=== PATIENT | female | born 1980 | race African-American/Black ===

== ENCOUNTER 2020-10-06 09:06 | Outpatient (CLI) | payer OTHER, SELFPAY ==
--- NOTE | ~2020-10-06 | MM_ITS ---
EXAMINATION: MM screening lucila BI w nate HISTORY: Screening mammogram TECHNIQUE: Craniocaudal and mediolateral oblique 3-D tomosynthesis images were obtained and synthetic 2-D images were generated. CAD analysis was submitted and interpreted. COMPARISON: None, baseline BREAST PARENCHYMAL COMPOSITION: The breasts are almost entirely fatty. FINDINGS: Scattered benign-appearing calcifications are present.Fat-containing masses in the upper ou ter quadrant of the right breast have the appearance of intramammary lymph nodes. There is no evidenc e of suspicious mass, calcification, or architectural distortion to suggest malignancy in either [address]. IMPRESSION: 1. No mammographic evidence of malignancy. 2. Recommend routine screening mammography in one year. BI-RADS Category 2: Benign finding(s). Reviewed, dictated and finalized at location A.
== END 2020-10-06 09:07 | disposition home or self-care (01) ==
LOC: ANHIMG 09:12
PROVIDERS: Visit Provider Obstetrics & Gynecology
DX: Z12.31 Encounter for screening mammogram for malignant neoplasm of breast (principal)
CPT/HCPCS: 77063; 77067

== ENCOUNTER 2020-12-14 16:44 | Emergency (ER) | payer OTHER, MEDICAID, SELFPAY ==
[2020-12-14 16:57] VITALS: BP 142/79; PULSE 82; RESP 18; TEMP 36.7; O2SAT 98
--- NOTE | 2020-12-14 17:13 | ED.UPPEXIN ---
HPI - Extremity Injury (Upper) General Chief Complaint: Extremity Injury, Upper Stated Complaint: left wrist swelling/pain Time Seen by Provider: 12/14/20 17:04 Source: patient and RN notes reviewed Mode of arrival: ambulatory Limitations: no limitations History of Present Illness HPI narrative: 40-year-old female presents with concern for left wrist pain and swelling. Reports 1 month history of wrist pain with flexion and extension, reports she has been using an Jung wrap for the past several days. Reports when she took the Jung wrap off the pain returned. She denies any injury or trauma, open skin, warmth, redness. Denies other intervention besides an Jung wrap. Related Data Home Medications Medication Instructions Recorded Confirmed Vitamin D 12/14/20 Allergies Allergy/AdvReac Type Severity Reaction Status Date / Time No Known Allergies Allergy Unverified 10/14/18 09:33 Review of Systems Review of Systems: CONSTITUTIONAL: Denies malaise, chills, sweats, or fever. SKIN: Denies abrasion, laceration, warmth, redness MUSCULOSKELETAL: Reports left wrist pain and swelling NEUROLOGIC: Denies numbness, weakness All systems reviewed & are unremarkable except as noted in HPI and below PMFSH Comments At time of signature, agree with nursing past medical, surgical, social and family history. There is no relevant family history pertinent to the presenting complaint Exam Narrative: GENERAL: Well-appearing, well-nourished, and in no acute distress. HEAD: Normocephalic, atraumatic. EYES: PERRLA, conjunctivae clear NECK: Supple. CHEST: Speaks in full sentences. No respiratory distress. HEART: Regular rate and rhythm. Normal and equal peripheral pulses. EXTREMITIES: Left wrist, hand, digits have normal strength and sensation, normal range of motion. No edema or ecchymosis. 5/5 strength with wrist and digit flexion and extension. Normal sensation with sensitivity to light touch and pain. Dorsal wrist tenderness. No open wounds, no skin tenting, no devitalized tissue or atrophy, no trophic changes, no obvious deformity, alignment normal, nearby joints and structures intact. Distal pulses palpable and equal bilaterally, skin warm, dry, pink. Capillary refill less than 3 seconds. SKIN: Warm, dry, no rash. NEURO: Alert and oriented x3. PSYCH: Normal mood and affect Course Course Emergency Course: Patient is aware of diagnosis, understands and agrees to treatment plan. Anticipatory guidance given. Patient agrees to follow-up as directed and is aware of reasons to seek care at the emergency department. Portions of this record may have been created with voice recognition software Vital Signs Vital signs: Vital Signs Temperature 98.0 F 12/14/20 16:57 Pulse Rate 82 12/14/20 16:57 Respiratory Rate 18 12/14/20 16:57 Blood Pressure 142/79 H 12/14/20 16:57 Pulse Oximetry 98 12/14/20 16:57 Temperature 98.0 F 12/14/20 16:57 Pulse Rate 82 12/14/20 16:57 Respiratory Rate 18 12/14/20 16:57 Blood Pressure 142/79 H 12/14/20 16:57 Pulse Oximetry 98 12/14/20 16:57 Reviewed. MDM - Extremity Injury (Upper) MDM Narrative Medical decision making narrative: Patients injury and pain is consistent with musculoskeletal etiology. No signs of neurological or vascular compromise on exam. Compartments and tissues are soft without signs of compartment syndrome. Pain is felt appropriate for further evaluation on an outpatient basis. Critical Care Time Critical Care Time Critical Care Time: No Discharge Plan Discharge Clinical Impression: Left wrist tendinitis Patient Disposition: Home, Self-Care Condition: Stable Instructions: Tendinitis (ED) Additional Instructions: Avoid activities that cause pain until the pain subsides. Ice to the area 20-30 minutes 4-6 times a day Elastic wrap or orthopedic splint as directed for comfort for the next 5-7 days Tylenol for lesser pain Ibuprofen regularly for
== END 2020-12-14 17:16 | disposition home or self-care (01) ==
PROVIDERS: Emergency Provider Nurse Practitioner
DX: M77.8 Other enthesopathies, not elsewhere classified (principal)
CPT/HCPCS: 99212; G0463

== ENCOUNTER 2021-11-03 14:17 | Outpatient (CLI) | payer OTHER, MEDICAID, SELFPAY ==
--- NOTE | 2021-11-03 | ECG_ITS ---
Measurements Intervals [place] Rate: 79 P: 18 WV: 148 QRS: 3 QRSD: 105 T: -15 QT: 382 QTc: 439 Interpretive Statements SINUS RHYTHM BORDERLINE ST-T WAVE ABNORMALITY- INFERIOR LEADS BORDERLINE ECG Electronically Signed On 11-03-2021 18:40:57 CDT by Terry Alejandra D.O.
--- NOTE | ~2021-11-03 | XR_ITS ---
EXAMINATION: XR chest 2V 11/03/2021 14:41 INDICATION: Chest pain after Covid PROCEDURE: 2 view chest COMPARISON: No prior studies for comparison. FINDINGS: The lungs are clear. The cardiomediastinal silhouette is within normal limits. There are no pleural effusions. There is no pneumothorax suspected. IMPRESSION: 1: NO ACUTE CARDIOPULMONARY DISEASE. Reviewed, dictated and finalized at location A.
== END 2021-11-03 14:18 | disposition home or self-care (01) ==
PROVIDERS: PCP Physician Assistant; Visit Provider Physician Assistant
DX: R07.9 Chest pain, unspecified (principal)
CPT/HCPCS: 71046; 93005

== ENCOUNTER 2021-11-17 09:50 | Outpatient (CLI) | payer OTHER, MEDICAID, SELFPAY ==
--- NOTE | 2021-11-17 | EST_ITS ---
Patient Info Name: Yovani Gray Age: 41 years : 1980 Gender: Female Ht: 63 in Wt: 282 lbs BSA: 2.46 m2 HR: 77 bpm BP: 118 / 67 mmHg Heart Rhythm: Sinus Rhythm Exam Date: 11/17/2021 10:08 AM Exam Location: [facility] Stress Patient Status: Outpatient Admit Date: 11/17/2021 Staff Ordering Physician: Milagro, Chelsy JACKSON Attending Provider: Milagro, Chelsy JACKSON Exercise Technologist: Juliette Balderrama CT Exercise Physician: Terry Alejandra DO Exam Type: CA stress test treadmill Study Info Indications R07.9 - Chest pain, unspecified A treadmill exercise stress test was performed. Summary 1. 1. Negative Shaheen exercise stress test for ischemic ST changes by ECG criteria. 2. 2. Reduced functional capacity, achieving 7 METs of workload. 3. 3. Appropriate HR response to exercise. 4. 4. Appropriate HR recovery at 1 minute post exercise. 5. 5. No imaging with stress testing. 6. 6. Patient informed of the above results. Protocol: Shaheen Stress ECG Details Stage: REST Duration (min): 1 min : 20 sec Speed (mph): 0.0 Grade (%): 0 HR (bpm): 79 SBP (mmHg): 118 DBP (mmHg): 67 METS: --- Stage: REST Duration (min): 14 min : 47 sec Speed (mph): 0.0 Grade (%): 0 HR (bpm): 80 SBP (mmHg): 118 DBP (mmHg): 67 METS: --- Stage: STAGE 1 Duration (min): 1 min : 0 sec Speed (mph): 1.7 Grade (%): 10 HR (bpm): 111 SBP (mmHg): 118 DBP (mmHg): 67 METS: --- Stage: STAGE 1 Duration (min): 2 min : 0 sec Speed (mph): 1.7 Grade (%): 10 HR (bpm): 126 SBP (mmHg): 118 DBP (mmHg): 67 METS: --- Stage: STAGE 1 Duration (min): 3 min : 0 sec Speed (mph): 1.7 Grade (%): 10 HR (bpm): 131 SBP (mmHg): 133 DBP (mmHg): 71 METS: --- Stage: STAGE 2 Duration (min): 1 min : 0 sec Speed (mph): 2.5 Grade (%): 12 HR (bpm): 144 SBP (mmHg): 133 DBP (mmHg): 71 METS: --- Stage: STAGE 2 Duration (min): 2 min : 0 sec Speed (mph): 2.5 Grade (%): 12 HR (bpm): 152 SBP (mmHg): 191 DBP (mmHg): 86 METS: --- Stage: STAGE 2 Duration (min): 3 min : 0 sec Speed (mph): 2.5 Grade (%): 12 HR (bpm): 156 SBP (mmHg): 191 DBP (mmHg): 86 METS: --- Stage: RECOVERY Duration (min): 0 min : 59 sec Speed (mph): 0.0 Grade (%): 0 HR (bpm): 131 SBP (mmHg): 178 DBP (mmHg): 40 METS: --- Stage: RECOVERY Duration (min): 1 min : 59 sec Speed (mph): 0.0 Grade (%): 0 HR (bpm): 117 SBP (mmHg): 178 DBP (mmHg): 40 METS: --- Stage: RECOVERY Duration (min): 2 min : 59 sec Speed (mph): 0.0 Grade (%): 0 HR (bpm): 108 SBP (mmHg): 152 DBP (mmHg): 48 METS: --- Stage: RECOVERY Duration (min): 3 min : 6 sec Speed (mph): 0.0 Grade (%): 0 HR (bpm): 104 SBP (mmHg): 152 DBP (mmHg): 48 METS: --- Rest HR: 80
== END 2021-11-17 09:51 | disposition home or self-care (01) ==
LOC: ANHCARD 09:52
PROVIDERS: PCP Physician Assistant; Visit Provider Physician Assistant
DX: R07.89 Other chest pain (principal)
CPT/HCPCS: 93017

== ENCOUNTER 2022-01-09 08:58 | Outpatient (CLI) | payer OTHER, MEDICAID, SELFPAY ==
[2022-01-09 09:21] LABS: Basophils Percent Auto 0.4 % (0.2-1.2); Eosinophils Absolute Auto 0.2 K/mm3 (0-0.3); Eosinophils Percent Auto 2.5 % (0-4.4); Hemoglobin 13.3 g/dL (12.0-15.0); Immature Granulocyte Absolute 0.01 K/mm3 (0.00-0.031); Immature Granulocyte Percent A 0.1 % (0-0.5); Lymphocytes Absolute Auto 2.57 K/mm3 (0.9-3.2); Lymphocytes Percent Auto 38.4 % (18.3-44.2); Mean Corpuscular HGB Conc 30.9 g/dl (32-36); Mean Corpuscular Hemoglobin 26.6 pg (26-34); Mean Platelet Volume 9.9 fl (7.4-10.4); Monocytes Absolute Auto 0.4 K/mm3 (0.1-0.6); Neutrophils Absolute Auto 3.5 K/mm3 (1.3-6.7); Neutrophils Percent Auto 52.6 % (45.5-73.1); Platelet Count Result 288 k/mm3 (150-375); Red Cell Distribution Width 14.4 % (11.5-14.5); White Blood Count 6.7 K/mm3 (4.5-10.0)
[2022-01-09 09:36] LABS: Alanine Aminotransferase 30 U/L (6-35); Albumin Level 4.2 g/dL (3.5-5.1); Alkaline Phosphatase 73 U/L (38-126); Anion Gap 7 mmol/L (8-16); Aspartate Amino Transferase 26 U/L (14-36); Bilirubin,Total 0.5 mg/dL (0.2-1.3); Blood Urea Nitrogen 9 mg/dL (7-17); Calcium 8.5 mg/dL (8.4-10.2); Carbon Dioxide 24 mmol/L (22-30); Chloride 107 mmol/L (98-107); Cholesterol 215 mg/dL (0-200); Estimated Glomerular Filt Rate > 60; Glucose 100 mg/dL (65-110); HDL Direct 58 mg/dL; Sodium 138 mmol/L (137-145); Triglycerides 118 mg/dL (<150)
[2022-01-09 09:47] LABS: LDL Cholesterol Direct 114 mg/dL
[2022-01-09 10:11] LABS: Iron 107 ug/dL (37-170)
[2022-01-09 10:20] LABS: Percent Iron Saturation 37 % (20-50)
[2022-01-09 10:35] LABS: Hemoglobin A1C 5.3 % (<5.7)
== END 2022-01-09 08:59 | disposition home or self-care (01) ==
PROVIDERS: PCP Physician Assistant; Visit Provider Physician Assistant
DX: R73.03 Prediabetes (principal); D64.9 Anemia, unspecified
CPT/HCPCS: 36415; 80053; 80061; 82728; 83036; 83540; 83550; 85025

== ENCOUNTER 2022-08-22 16:35 | Emergency (ER) | payer OTHER, MEDICAID, SELFPAY ==
[2022-08-22 16:40] VITALS: BP 150/80; PULSE 77; RESP 16; TEMP 36.9; O2SAT 100
--- NOTE | 2022-08-22 16:54 | ED.EYEPROB ---
HPI - Eye Problem General Chief complaint: Eye Problems Stated complaint: Left Eye Irritation Time Seen by Provider: 08/22/22 16:55 Source: patient Mode of arrival: ambulatory Limitations: no limitations History of Present Illness HPI Narrative: 42-year-old female presents with complaint of left upper eyelid pain and swelling for 2-3 days. Denies drainage. Denies vision changes. Patient wears prescription eyeglasses but not contacts. All systems reviewed and negative except as noted above. Related Data Home Medications Medication Instructions Recorded Confirmed Vitamin D 1 cap PO DAILY 12/14/20 08/22/22 trazodone 50 mg tablet 50 mg PO DAILY 08/22/22 08/22/22 Allergies Allergy/AdvReac Type Severity Reaction Status Date / Time No Known Allergies Allergy Verified 08/22/22 16:47 Review of Systems Review of Systems: CONSTITUTIONAL: Denies fever, chills, or sweats. EYES: Denies visual changes, redness, or discharge. Reports pain and swelling to left upper eyelid. ENT: Denies rhinorrhea, congestion, sore throat, or otalgia. CARDIOVASCULAR: Denies chest pain, palpitations, or edema. RESPIRATORY: Denies cough or dyspnea. GASTROINTESTINAL: Denies abdominal pain, nausea, vomiting, or diarrhea. GENITOURINARY: Denies dysuria or hematuria. SKIN: Denies rash or itching. MUSCULOSKELETAL: Denies back pain, joint pain, or myalgia. NEUROLOGIC: Denies headache, numbness, or weakness. PSYCHIATRIC: Denies anxiety or depression. All other systems reviewed are negative, except as documented in HPI. PMFSH Comments At time of signature, agree with nursing past medical, surgical, social and family history. There is no relevant family history pertinent to the presenting complaint. Exam Narrative: GENERAL: This is a well-nourished, well-developed patient, in no apparent distress. HEAD: normocephalic, atraumatic. EYES: PERRL. Sclera clear/white. Vision is grossly intact. Erythematous swollen, tender internally to left upper eyelid concerning for a stye. EARS: External ears normal NOSE: External nose normal NECK: Neck supple, non-tender without lymphadenopathy, masses or thyromegaly. CARDIOVASCULAR: Regular rate and rhythm without murmurs, gallops, or rubs. RESPIRATORY: Clear to auscultation. Breath sounds equal bilaterally. No wheezes, rales, or rhonchi. SKIN: warm, Dry, intact with no suspicious lesions or rash, good texture and turgor. NEURO: awake, alert, and oriented to person, place and time. There were no obvious focal neurologic abnormalities. EXTREMITIES: No joint tenderness, effusion, or edema noted. Course Course Level of Care: Express Care Visit Vital Signs Vital signs: Vital Signs Temperature 36.9 C 08/22/22 16:40 Pulse Rate 77 08/22/22 16:40 Respiratory Rate 16 08/22/22 16:40 Blood Pressure 150/80 H 08/22/22 16:40 Pulse Oximetry 100 08/22/22 16:40 Oxygen Delivery Room Air 08/22/22 16:40 Temperature 36.9 C 08/22/22 16:40 Pulse Rate 77 08/22/22 16:40 Respiratory Rate 16 08/22/22 16:40 Blood Pressure 150/80 H 08/22/22 16:40 Pulse Oximetry 100 08/22/22 16:40 Oxygen Delivery Room Air 08/22/22 16:40 Reviewed MDM - Eye Problem MDM Narrative Medical decision making narrative: Patient is aware of diagnosis, understands and agrees to treatment plan. Anticipatory guidance given. Patient agrees to follow-up as directed and is aware of reasons to seek care at the emergency department. Portions of this record may have been created with voice recognition software patient instructed to follow up with family intervention specialist if symptoms not improving. Discharge Plan Discharge Clinical Impression: Hordeolum internum left upper eyelid Patient Disposition: Home, Self-Care Condition: Stable Instructions: Antibiotic Gilmer Morse (ED) Additional Instructions: place antibiotic ointment as prescribed. Wash hands before and after placing ointment. Sis
== END 2022-08-22 17:13 | disposition home or self-care (01) ==
PROVIDERS: Emergency Provider Nurse Practitioner Family; PCP Physician Assistant
DX: H00.014 Hordeolum externum left upper eyelid (principal); F32.A Depression, unspecified; E55.9 Vitamin D deficiency, unspecified
CPT/HCPCS: 99213; G0463

== ENCOUNTER 2022-11-21 09:55 | Outpatient (CLI) | payer OTHER, MEDICAID, SELFPAY ==
--- NOTE | ~2022-11-21 | MM_ITS ---
EXAMINATION: MM screening lucila BI w nate HISTORY: Screening mammogram TECHNIQUE: Craniocaudal and mediolateral oblique 3-D tomosynthesis images were obtained and synthetic 2-D images were generated. CAD analysis was submitted and interpreted. COMPARISON: 10/06/2020 bilateral screening mammogram BREAST PARENCHYMAL COMPOSITION: The breasts are almost entirely fatty. FINDINGS: There is no evidence of suspicious mass, calcification, or architectural distortion to sugg est malignancy in either breast. There has been no suspicious interval change. IMPRESSION: 1. No mammographic evidence of malignancy. 2. Recommend routine screening mammography in one year. BI-RADS Category 1: Negative Reviewed, dictated and finalized at location A.
== END 2022-11-21 09:56 | disposition home or self-care (01) ==
LOC: ANHIMG 09:57
PROVIDERS: PCP Physician Assistant; Visit Provider Physician Assistant
DX: Z12.31 Encounter for screening mammogram for malignant neoplasm of breast (principal)
CPT/HCPCS: 77063; 77067

== ENCOUNTER 2023-01-21 16:07 | Emergency (ER) | payer OTHER, MEDICAID, SELFPAY ==
--- NOTE | ~2023-01-21 | XR_ITS ---
XR ankle LT min 3V DATE: 01/21/2023 16:25 INDICATION: Pain today after jump roping yesterday TECHNIQUE: 4 views COMPARISON: None FINDINGS: Mild plantar and posterior calcaneal enthesopathy. No fracture or dislocation of the ankle or disruption of the ankle mortise. No periosteal reaction or bone destruction. IMPRESSION: No fracture or dislocation Calcaneal enthesopathy Reviewed, dictated and finalized at location B.
--- NOTE | 2023-01-21 16:11 | ED.LOWEXIN ---
HPI - Extremity Injury (Lower) General Chief Complaint: Extremity Injury, Lower Stated Complaint: left ankle pain Time Seen by Provider: 01/21/23 16:18 Source: patient, RN notes reviewed and old records reviewed Mode of arrival: ambulatory Limitations: no limitations History of Present Illness HPI Narrative: 42-year-old female presents to the [facility] with complaints of left lateral posterior ankle pain since waking up this morning. No treatment prior to arrival. Patient states yesterday she was jump roping at a family function. Related Data Home Medications Medication Instructions Recorded Confirmed multivitamin 1 tablet PO DAILY 09/12/22 01/21/23 Allergies Allergy/AdvReac Type Severity Reaction Status Date / Time No Known Allergies Allergy Verified 09/12/22 13:22 Review of Systems Review of Systems: All systems reviewed & are unremarkable except as noted in HPI and below Constitutional: Constitutional: Reports no additional constitutional complaints Eyes: Eyes: Reports no additional eye complaints ENT: Reports system reviewed and no additional complaints, except as documented Cardiovascular: Cardiovascular: Reports no additional cardiovascular complaints, Denies chest pain and Denies dyspnea Respiratory: Respiratory: Reports no additional respiratory complaints, Denies chest congestion, Denies cough and Denies dyspnea Gastrointestinal: Gastrointestinal: Reports no additional gastrointestinal complaints, Denies abdominal pain, Denies nausea and Denies vomiting Musculoskeletal: Musculoskeletal: Reports as per HPI Integumentary/Breasts: Skin/Breast: Reports system reviewed and no additional complaints, except as docu Neurologic: Reports system reviewed and no additional complaints, except as documented Psychiatric: Psychiatric: Reports no additional psychiatric complaints Allergic/Immunologic: Allergic/Immunologic: Reports no additional allergic/immunologic complaints [facility] Past Medical History 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 Surgical History Surgical History History of hysterectomy 12/20/2011 Family History Family History Son Asthma Sibling Asthma Diabetes mellitus Anxiety and depression Heart disease Mother Cancer Diabetes mellitus Hypertension Heart disease Other Cancer uncle Diabetes mellitus uncle, aunt Hypertension uncle, aunt Grandparent Cancer Diabetes mellitus Hypertension Heart disease Cerebrovascular accident Father Diabetes mellitus Hypertension Social History Social History Smoking status: Never smoker Alcohol intake: never Substance use: never Comments At the time of my signature, I reviewed and agree with the nursing past medical, surgical, social, and family history. There is no relevant family history pertinent to the patient complaint. Exam Const: General: cooperative, healthy appearing, comfortable, no acute distress, well developed, alert and well nourished Nutritional Appearance: well nourished and obese Orientation/consciousness: patient oriented x3 Limitations: no limitations HENMT: Head: normal to inspection Ears: hearing grossly normal bilaterally and external ears normal Face/Nose/Sinus: Normal external nose present, Normal nares present, Normal nasal mucous membranes and turbinates present, normal facial exam and face symmetric Face and sinus: normal facial exam and face symmetric Eyes: General: appearance normal, both eyes and all related structures Alignment and Position: alignment normal Periorbital: periorbital findings normal Pupils: Equal, round and reactive pupils present EOM: EOMs intact bilaterally Neck: Neck: normal visual inspection, full ROM, no
[2023-01-21 16:17] VITALS: BP 156/92; PULSE 73; RESP 14; TEMP 36.6; O2SAT 100
== END 2023-01-21 16:42 | disposition home or self-care (01) ==
PROVIDERS: Emergency Provider Nurse Practitioner; PCP Physician Assistant
DX: S93.402A Sprain of unspecified ligament of left ankle, initial encounter (principal); X58.XXXA Exposure to other specified factors, initial encounter
CPT/HCPCS: 73610; 99213; G0463

== ENCOUNTER 2023-09-03 08:13 | Emergency (ER) | payer OTHER, MEDICAID, SELFPAY ==
--- NOTE | 2023-09-03 08:17 | ED.URI ---
HPI - URI/Sore Throat General Chief Complaint: Upper Respiratory Infection Stated Complaint: sore throat Time Seen by Provider: 09/03/23 08:37 Source: patient, RN notes reviewed and old records reviewed Mode of arrival: ambulatory Limitations: no limitations History of Present Illness HPI Narrative: 43-year-old female presents to the [facility] with complaints of a sore throat that started yesterday. States she has not taken anything for her pain. Denies any other symptoms other than a sore throat and fatigue Onset (ago): day(s) (1) Related Data Allergies Allergy/AdvReac Type Severity Reaction Status Date / Time No Known Allergies Allergy Verified 09/03/23 08:29 Review of Systems Review of Systems: All systems reviewed & are unremarkable except as noted in HPI and below Constitutional: Constitutional: Reports as per HPI and Reports fatigue Eyes: Eyes: Reports no additional eye complaints ENT: Reports as per HPI and Reports sore throat Cardiovascular: Cardiovascular: Reports no additional cardiovascular complaints, Denies chest pain and Denies dyspnea Respiratory: Respiratory: Reports no additional respiratory complaints, Denies chest congestion, Denies cough and Denies dyspnea Gastrointestinal: Gastrointestinal: Reports no additional gastrointestinal complaints, Denies abdominal pain, Denies nausea and Denies vomiting Musculoskeletal: Musculoskeletal: Reports no additional musculoskeletal complaints Integumentary/Breasts: Skin/Breast: Reports system reviewed and no additional complaints, except as docu Neurologic: Reports system reviewed and no additional complaints, except as documented Psychiatric: Psychiatric: Reports no additional psychiatric complaints Allergic/Immunologic: Allergic/Immunologic: Reports no additional allergic/immunologic complaints PMFSH Past Medical History 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 Surgical History Surgical History History of hysterectomy 12/20/2011 Family History Family History Son Asthma Sibling Asthma Diabetes mellitus Anxiety and depression Heart disease Mother Cancer Diabetes mellitus Hypertension Heart disease Other Cancer uncle Diabetes mellitus uncle, aunt Hypertension uncle, aunt Grandparent Cancer Diabetes mellitus Hypertension Heart disease Cerebrovascular accident Father Diabetes mellitus Hypertension Social History Social History Smoking status: Never smoker Alcohol intake: never Substance use: never Comments At the time of my signature, I reviewed and agree with the nursing past medical, surgical, social, and family history. There is no relevant family history pertinent to the patient complaint. Exam Const: General: cooperative, healthy appearing, comfortable, no acute distress, well developed, alert and well nourished Nutritional Appearance: well nourished and obese Orientation/consciousness: patient oriented x3 Limitations: no limitations HENMT: Head: normal to inspection Ears: hearing grossly normal bilaterally, external ears normal, TM's normal bilaterally, EAC's normal, mastoids normal and no periauricular adenopathy Face/Nose/Sinus: Normal external nose present, Normal nares present, Normal nasal mucous membranes and turbinates present, normal facial exam and face symmetric Face and sinus: normal facial exam and face symmetric Mouth: Yes Normal oral and palatal mucosa present, Yes lip normal and Yes moist mucous membranes Throat: posterior oropharynx normal, uvula midline, abnormal tonsil bilateral erythema, exudates and hypertrophy 3+ and no uvular edema Eyes: General: appearance normal, both eyes and all related structures Alignment and Position:
[2023-09-03 08:19] VITALS: BP 156/94; PULSE 110; RESP 16; TEMP 37.2; O2SAT 97
== END 2023-09-03 08:51 | disposition home or self-care (01) ==
PROVIDERS: Emergency Provider Nurse Practitioner; PCP Physician Assistant
DX: J02.0 Streptococcal pharyngitis (principal)
CPT/HCPCS: 87880; 99213; G0463

== ENCOUNTER 2024-03-04 07:52 | Emergency (ER) | payer OTHER, SELFPAY ==
[2024-03-04 07:55] VITALS: BP 158/94; PULSE 84; RESP 16; TEMP 36.8; O2SAT 98
--- NOTE | 2024-03-04 10:03 | ED.NAVMDI ---
HPI - Nausea/Vomiting/Diarrhea General Chief complaint: Nausea/Vomiting/Diarrhea Stated complaint: n/v Time Seen by Provider: 03/04/24 10:03 Focused HPI: This is a 43 year old female that presents to the ER for cold symptoms present over the last 5 days. Reports rib pain, shortness of breath, cough, congestion, sore throat, nausea and vomiting. Denies fevers. GENERAL: Well-appearing, well-nourished, and in no acute distress. HEAD: Normocephalic, atraumatic. CHEST: Clear to auscultation. ?No respiratory distress. HEART: Regular rate and rhythm.? NEURO: ?Alert and oriented x3. Patient screened in triage and initial orders placed.? ?Additional care and disposition to be based upon?diagnostic testing and treatment. 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 Surgical History Surgical History History of hysterectomy 12/20/2011 Family History Family History Son Asthma Sibling Asthma Diabetes mellitus Anxiety and depression Heart disease Mother Cancer Diabetes mellitus Hypertension Heart disease Other Cancer uncle Diabetes mellitus uncle, aunt Hypertension uncle, aunt Grandparent Cancer Diabetes mellitus Hypertension Heart disease Cerebrovascular accident Father Diabetes mellitus Hypertension Social History Social History Smoking status: Never smoker Alcohol intake: never Substance use: never Course Vital Signs Vital signs: Vital Signs Temperature 98.2 F 03/04/24 07:55 Pulse Rate 84 03/04/24 07:55 Respiratory Rate 16 03/04/24 07:55 Blood Pressure 158/94 H 03/04/24 07:55 Pulse Oximetry 98 03/04/24 07:55 Temperature 98.2 F 03/04/24 07:55 Pulse Rate 84 03/04/24 07:55 Respiratory Rate 16 03/04/24 07:55 Blood Pressure 158/94 H 03/04/24 07:55 Pulse Oximetry 98 03/04/24 07:55 MDM - Nausea/Vomiting/Diarrhea MDM Narrative Medical decision making narrative: patient left after being seen by myself and before any further evaluation or management Discharge Plan Discharge Clinical Impression: Acute viral syndrome Patient Disposition: Elopement After Seen by Prov Condition: Stable Prescriptions: No Action amoxicillin-pot clavulanate 875-125 mg tablet 1 tablet PO Q12H 7 Days Qty: 14 0RF azithromycin 250 mg tablet See Rx Instructions .ROUTE .COMPLEX Qty: 6 0RF Rx Instructions: For 250 mg dose pack: take 500 mg today (day 1), then 250 mg for 4 days (days 2-5) albuterol sulfate 90 mcg/actuation HFA aerosol inhaler 2 puff inhalation Q4-6H PRN (Reason: shortness of breath or wheezing) 30 Days Qty: 8.5 0RF Follow-up/Referrals: Milagro,MANUEL Salazar [Primary Care Provider] -
== END 2024-03-04 11:59 | disposition left against medical advice (07) ==
PROVIDERS: Emergency Provider Physician Assistant; PCP Physician Assistant
DX: B34.9 Viral infection, unspecified (principal); Z90.710 Acquired absence of both cervix and uterus
CPT/HCPCS: 99281

== ENCOUNTER 2024-03-04 12:30 | Emergency (ER) | payer OTHER, SELFPAY ==
--- NOTE | ~2024-03-04 | XR_ITS ---
XR chest 2V Ordering provider: Sonido Celaya APRN History: 43 years Female with . cough, sob . Comparison: None. FINDINGS: MEDIASTINUM: The cardiac silhouette is not enlarged. LUNGS: No effusions or pneumothorax. Opacification in the left lower lobe area with prominent marking s in the right lower lobe area medially suggestive of atelectasis versus pneumonia. OTHER: No free air under the diaphragm. IMPRESSION: Bilateral basal opacification more on the left side which may indicate early pneumonia. Follow-up adv ised. Reviewed, dictated and finalized at location [facility] IMPRESSION: Bilateral basal opacification more on the left side which may indicate early pn eumonia. Follow-up advised.
--- NOTE | 2024-03-04 12:34 | ED_ITS ---
HPI - URI/Sore Throat General Chief Complaint: Upper Respiratory Infection Stated Complaint: Bodyaches/Sinus Time Seen by Provider: 03/04/24 13:00 Source: patient Mode of arrival: ambulatory Limitations: no limitations History of Present Illness HPI Narrative: Yovani is a 43-year-old female patient presenting to the clinic today with complaints of nasal congestion, sore throat, nausea, vomiting, body aches, and s hortness of breath when lying flat. 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 Her son was seen here last week and he was diagnosed with a ear infection. She denies any known fever MD elicited complaint: cough, sore throat, nasal congestion and other (Shortness of breath, nausea, vomiting) Related Data Allergies Allergy/AdvReac Type Severity Reaction Status Date / Time No Known Allergies Allergy Verified 03/04/24 12:34 Review of Systems Review of Systems: Pertinent positives per HPI. Patient denies any fever, chills, rash, headache, visual changes, dizziness, chest pain, palpitations, diarrhea, constipation, abdominal pain, or any urinary issues. 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 Surgical History Surgical History History of hysterectomy 12/20/2011 Family History Family History Son Asthma Sibling Asthma Diabetes mellitus Anxiety and depression Heart disease Mother Cancer Diabetes mellitus Hypertension Heart disease Other Cancer uncle Diabetes mellitus uncle, aunt Hypertension uncle, aunt Grandparent Cancer Diabetes mellitus Hypertension Heart disease Cerebrovascular accident Father Diabetes mellitus Hypertension Social History Social History Smoking status: Never smoker Alcohol intake: never Substance use: never Comments At the time of my signature, I reviewed and agree with the nursing past medical, surgical, social, and family history. There is no relevant family history pertinent to the patient complaint. Exam Narrative: General: Well-developed, well nourished, in no apparent distress Head: Normocephalic, atraumatic Eyes: Pupils equally round and reactive to light bilaterally, EOM intact, sclera and conjunctive clear, no discharge, lids normal Ears: TMs intact and congested, ear canals clear, no drainage, grossly hearing normal. Nose: Nares patent, clear nasal discharge, no inflammation, no sinus tenderness. Mouth: Oral pharynx red without lesions or masses, good dentition, MMM. Neck: Supple, trachea midline, no enlargement of anterior or posterior cervical nodes, no thyroid masses or goiter palpable. Cardio: Regular rate and rhythm, s1 and s2 normal, no murmur appreciated. Resp: Diminished in the bases, no rhonchi, rales, wheezing or rubs Course Course Emergency Course: Portions of this record may have been created with voice recognition software. Level of Care: Express Care Visit Vital Signs Vital signs: Vital Signs Temperature 36.4 C 03/04/24 12:39 Pulse Rate 87 03/04/24 12:39 Respiratory Rate 19 03/04/24 12:39 Blood Pressure 171/105 H 03/04/24 12:39 Pulse Oximetry 100 03/04/24 12:39 Oxygen Delivery Room Air 03/04/24 12:39 Temperature 36.4 C 03/04/24 12:39 Pulse Rate 87 03/04/24 12:39 Respiratory Rate 19 03/04/24 12:39 Blood Pressure 171/105 H 03/04/24 12:39 Pulse Oximetry 100 03/04/24 12:39 Oxygen Delivery Room Air 03/04/24 12:39 Vital signs reviewed MDM - URI/Sore Throat MDM Narrative Medical decision making narrative: At the time of visit patient is resting comfortably on the exam table. Patient appears to be nontoxic. Labs: COVID, influenza, and strep test were performed. Diagnostics: Chest x-ray shows possible early pneumonia in the left basilar lobe Plan: Will treat the patient for community-acquired pneumonia. Will place on azithromycin, Augmentin, and albuterol inhaler. Supportive measures were discussed with the patient and they voiced understanding discharge instructions and agrees to treatment plan. Return precautions reviewed Differential Diagnosis Differential diagnosis: Likely upper respiratory infection, otitis media, sinusitis, viral infection, bronchitis, influenza, pharyngitis and other (COVID) Lab Data Labs: Lab Results 03/04/24 Range/Units 13:32 POC Influenza A Ag Pending POC Influenza B Ag Pending POC SARS CoV-2 Ag Pending Discharge Plan Discharge Clinical Impression: Pneumonia Qualifiers: Pneumonia type: due to unspecified organism Laterality: left Lung location: lower lobe of lung Qualified Code(s): J18.9 - Pneumonia, unspecified organism Patient Disposition: Home, Self-Care Condition: Stable Instructions: Antibiotic Form, Pneumonia (ED) Additional Instructions: Chest x-ray shows possible early left basilar lobe pneumonia. COVID, influenza, and strep test were all negative. We will send strep for culture. Take prescription medications only as prescribed-albuterol inhaler, azithromycin, and Augmentin Increase fluids and stay well hydrated Tylenol/motrin for pain/fever Flonase and OTC antihistamines as directed Vicks vapor rub to open sinuses Sinus rinses for congestion Cepacol spray, cough drops, throat lozenges, warm tea with honey/lemon, gargle salt water to soothe throat BRAT diet for diarrhea Clear liquids x 24 hours then advance as tolerated for nausea/vomiting Go to the ED if you develop a worsening in your condition- high fever not controlled by Tylenol or Motrin, dehydration, weakness, lethargy, shortness of breath, or chest pain. Follow up with your PCP in 3-5 days if symptoms persist. Prescriptions: New amoxicillin-pot clavulanate 875-125 mg tablet 1 tablet PO Q12H 7 Days Qty: 14 0RF azithromycin 250 mg tablet See Rx Instructions .ROUTE .COMPLEX Qty: 6 0RF Rx Instructions: For 250 mg dose pack: take 500 mg today (day 1), then 250 mg for 4 days (days 2-5) albuterol sulfate 90 mcg/actuation HFA aerosol inhaler 2 puff inhalation Q4-6H PRN (Reason: shortness of breath or wheezing) 30 Days Qty: 8.5 0RF Follow-up/Referrals: Milagro,MANUEL Salazar [Primary Care Provider] - Stand Alone Forms: Work/School Release IP Time of Disposition: 13:32 Quality NIHSS Nursing Documentation ED NIHSS nursing documentation: reviewed/agree
[2024-03-04 12:39] VITALS: BP 171/105; PULSE 87; RESP 19; TEMP 36.4; O2SAT 100
[2024-03-04 13:37] LABS: EDCOVIDSCREEN Negative (Negative)
[2024-03-04 13:38] LABS: EDINFLUASCREEN Negative (Negative); EDINFLUBSCREEN Negative (Negative)
== END 2024-03-04 13:40 | disposition home or self-care (01) ==
PROVIDERS: Emergency Provider Nurse Practitioner Family; PCP Physician Assistant
DX: J18.9 Pneumonia, unspecified organism (principal); Z20.822 Contact with and (suspected) exposure to COVID-19
CPT/HCPCS: 71046; 87081; 87426; 87804; 87880; 99213; G0463